=== PATIENT | male | born 1935 | race Caucasian/White ===

== ENCOUNTER 2022-12-26 15:05 | Outpatient (OUT) | payer MEDICARE, OTHER, SELFPAY ==
[2022-12-26 15:36] LABS: Basophils Percent Auto 0.3 % (0.2-2.0); Eosinophils Absolute Auto 0.1 10^3/uL (0.0-0.7); Eosinophils Percent Auto 1.2 % (0.9-7.0); Hematocrit 42.3 % (42.0-54.0); Hemoglobin 12.9 g/dL (14.0-18.0); Immature Granulocytes Abs Auto 0.01 10^3/uL (0.00-0.03); Immature Granulocytes Pct Auto 0.2 % (0.0-0.5); Lymphocytes Absolute Auto 1.8 10^3/uL (1.2-3.8); Lymphocytes Percent Auto 29.5 % (20.5-60.0); Mean Corpuscular HGB Conc 30.5 g/dL (29.9-35.2); Mean Corpuscular Hemoglobin 28.5 pg (25.9-34.0); Mean Corpuscular Volume 93.4 fL (80.0-94.0); Mean Platelet Volume 9.2 fL (9.5-13.5); Monocytes Absolute Auto 0.6 10^3/uL (0.3-0.8); Monocytes Percent Auto 9.2 % (1.7-12.0); Neutrophils Absolute Auto 3.6 10^3/uL (1.4-6.5); Neutrophils Percent Auto 59.6 % (43.0-75.0); Platelet Count 352 10^3/uL (150-450); Red Blood Count 4.53 10^6/uL (4.70-6.10); Red Cell Distribution Width 14.6 % (11.0-15.0)
[2022-12-26 15:48] LABS: Erythrocyte Sedimentation Rate 51 mm/hr (<=20)
--- NOTE | 2022-12-26 15:55 | XR_ITS ---
The [address] [address] Patient Name: RANDA NAIR MRN: [id number] date: 1935 Sex: M Assigned Patient Location: LAB Current Patient Location: LAB Accession/Order Number: [id number] Exam Date: 12/26/2022 15:48 Report Date: 12/26/2022 16:53 At the request of: ISAAK DUMONT Procedure: XR hand LT min 3V EXAM: XR hand LT min 3V HISTORY: Chronic left hand pain m79.89 Other specified soft tissue disorder COMPARISON: None. TECHNIQUE: 3 views left hand. FINDINGS: Old chronic healed mild deformity of the left fifth middle phalanx and possibly the proximal phalanx. No acute fracture or dislocation. Mild diffuse soft tissue swelling and edema throughout. Chondrocalcinosis of the TFC and also at the cartilage of the fifth MCP joint. 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 Moderate degenerative change of the STT joints. Mild degenerative change of the remaining wrist. Mild degenerative change of the MCP joints. Moderate to early severe degenerative change throughout the IP joints. IMPRESSION: Diffuse soft tissue swelling and edema left hand with chronic and degenerative change but no acute fracture. Electronically authenticated by: DANTE BARRAGAN Date: 12/26/2022 16:53
[2022-12-26 15:57] LABS: Anion Gap 11.3; BUN Creatinine Ratio 12.5; Calcium 9.5 mg/dL (8.5-10.1); Carbon Dioxide 27.5 mmol/L (21.0-32.0); Chloride 104 mmol/L (98-107); Estimated GFR (African America >60 (>=60); Estimated GFR (Non-African Ame >60 (>=60); Glucose 109 mg/dL (74-106); Potassium 3.8 mmol/L (3.5-5.1); Sodium 139 mmol/L (136-145); Uric Acid 3.8 mg/dL (3.5-7.2)
== END 2022-12-26 15:06 | disposition home or self-care (01) ==
LOC: LAB 15:10
PROVIDERS: PCP Family Medicine; Visit Provider Family Medicine
DX: I10 Essential (primary) hypertension (principal); M79.89 Other specified soft tissue disorders
CPT/HCPCS: 36415; 73130; 80048; 84550; 85025; 85652

== ENCOUNTER 2023-01-06 12:33 | Outpatient (OUT) | payer MEDICARE, OTHER, SELFPAY ==
--- NOTE | 2023-01-06 12:42 | MR_ITS ---
The [place] [id number] Patient Name: RANDA NAIR MRN: [id number] date: 1935 Sex: M Assigned Patient Location: MRI Current Patient Location: MRI Accession/Order Number: [id number] Exam Date: 01/06/2023 12:50 Report Date: 01/06/2023 15:57 At the request of: ISAAK DUMONT Procedure: MR head/brain wo con EXAMINATION: MR head/brain wo con HISTORY: Parkinson disease G20 COMPARISON: No relevant comparison available. TECHNIQUE: A variety of imaging planes and parameters were utilized for visualization of suspected pathology. Images were performed without contrast. FINDINGS: CEREBRUM: Prominent, but symmetric parenchymal atrophy. Mild T2 hyperintensities suggestive of chronic small vessel ischemic changes. No hemorrhage, mass, or mass effect. CEREBELLUM: No edema, hemorrhage, mass, acute infarction, or inappropriate atrophy. BRAINSTEM: No edema, hemorrhage, mass, acute infarction, or inappropriate atrophy. CSF SPACES: Ventricles, cisterns, and sulci are appropriate for age. No hydrocephalus, subarachnoid hemorrhage, or mass. SKULL: No mass or other significant visible lesion. SINUSES: Mucosal thickening within the maxillary sinuses. No fluid levels. ORBITS: Limited views are unremarkable. OTHER: Negative. MR/MR head/brain wo con IMPRESSION: 1. Prominent, but age consistent atrophy. 2. No mass, hemorrhage, or suspicious findings. 3. Mild chronic sinusitis. Electronically authenticated by: JAYANT POWELL Date: 01/06/2023 15:57
== END 2023-01-06 12:34 | disposition home or self-care (01) ==
LOC: MRI 12:33
PROVIDERS: PCP Family Medicine; Visit Provider Family Medicine
DX: G20 Parkinson's disease (principal); G31.9 Degenerative disease of nervous system, unspecified; J32.9 Chronic sinusitis, unspecified
CPT/HCPCS: 70551